=== PATIENT | male | born 1995 | race Caucasian/White ===

== ENCOUNTER 2018-12-12 11:15 | Emergency (ER) | payer OTHER, SELFPAY ==
[2018-12-12 11:18] VITALS: BP 152/91; PULSE 91; RESP 20; TEMP 37.1; O2SAT 98
--- NOTE | 2018-12-12 11:24 | ED.GENADUL_ITS ---
Discharge Plan Disposition Patient Disposition: HOME Condition: Stable Discharge Details Chief Complaint: AnimalBite Clinical Impression: Dog bite Primary Care Provider: Timo Barnett ED Provider: Ester Boston Home Meds and New Rx's Prescriptions: New doxycycline hyclate 100 mg tablet 100 mg PO BID 7 Days Qty: 14 RF: 0 Discharge Instructions Instructions: Animal Bite (ED) Additional Instructions: Keep wound clean, dry and covered. Take antibiotics until finished. Alternate Tylenol and Motrin as needed and directed for pain. Follow-up with your Worker's Compensation physician or occupational medicine in 1 week for wound evaluation. Return to the emergency department if you develop any worsening or new concerning symptoms such as fever, chills, worsening redness, pain or swelling. Follow-up with the department of health/animal control regarding the dog's immunization status and any other recommendations. Stand Alone Forms: Work Release Discharge Data Discharge Physician: Ester Boston Medical Decision Making 23-year-old male who presents with dog bite to the left upper thigh sustained prior to arrival. Unknown status of dog's immunizations. Patient is unsure of his own tetanus status. There is a superficial laceration and skin avulsion noted to the left upper thigh that seems limited to the epidermis. No open gaping wounds. No active bleeding. No obvious signs of fracture or foreign body. Neurovascular intact. Patient states it was a small to medium size dog. Will obtain a left femur x- ray to rule out foreign body. Will give a Boostrix, irrigate wound and cover with antibiotic ointment. Patient states he is allergic to penicillin. Pt declined medicine for pain here. Tetanus given. 1245 -- xray negative. Will discharge home with script for doxycycline. Pt instructed on the importance of good wound care. Instructed to rest, ice, elevate L leg. Instructed to alternate tylenol and motrin for pain. Instructed to return here if any signs of infection, fever, or chills. Medical Records Medical records reviewed: Yes I reviewed the patient's medical records. Imaging Data Radiologic Study: Radiologist's impression: LEFT FEMUR: No bone, joint or soft tissue abnormality is identified. The findings were discussed with the ER on the date of the examination. HPI General Mode of arrival: ambulatory . Date/Time Provider Initiated Documentation: 12/12/18 11:16 . Limitations to Documentation: no limitations . Information obtained by: patient . 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 Patient states he was walking up to his house when the owners let out the dog which ran him and bit him. He states he is unsure of the dog's immunization status. Patient states he is unsure of his own tetanus status. Patient denies any other injuries. Related Data Home Medications Medication Instructions Recorded Confirmed doxycycline hyclate 100 mg PO BID 7 Days #14 tab 12/12/18 Previous Rx's Medication Instructions Recorded doxycycline hyclate 100 mg PO BID 7 Days #14 tab 12/12/18 Allergies Allergy/AdvReac Type Severity Reaction Status Date / Time Penicillins Allergy Unverified 12/12/18 11:21 cigarette smoke AdvReac Unverified 12/12/18 11:21 General Stated Complaint: AnimalBite BC: 3 Review of Systems Review of Systems All systems reviewed & are unremarkable except as noted in HPI and below PFSH Medical History No significant past medical history (Acute) Surgical History History of knee surgery (Acute) History of appendectomy (Chronic) Social History Smoking/Tobacco Use Status: Never Alcohol Intake: current Alcohol Intake frequency: holidays/special occasions only Substance use type: does not use Do you feel safe at home: Yes Do you feel safe in your relationship?: Yes Exam Const General: cooperative, healthy appearing and no acute distress HENMS Head: normal to inspection Mouth: oral mucosae normal Eyes General: appearance normal, both eyes and all related structures Neck Neck: normal visual inspection Resp Effort & Inspection: normal respiratory effort and able to speak in complete sentences Cardio Rate: regular rate Skin General skin exam: no rashes or lesions noted Neuro General: alert, awake and oriented x3 Motor: muscle tone normal throughout Extrem Upper/lower leg/hip images: 1. There is an irregularly shaped jagged superficial laceration with superficial skin avulsion noted on distal medial aspect. No active bleeding. No erythema, edema, ecchymoses. Other: Normal range of motion noted at left hip. Psych Appearance: grossly normal Affect: normal affect Course Vital Signs Temperature 98.8 F 12/12/18 11:18 Pulse 91 H 12/12/18 11:18 Respiratory Rate 20 12/12/18 11:18 Blood Pressure 152/91 H 12/12/18 11:18 Pulse Oximetry 98 12/12/18 11:18 Temperature 98.8 F 12/12/18 11:18 Temperature Source Temporal Artery Scan 12/12/18 11:18 Pulse 91 H 12/12/18 11:18 Respiratory Rate 20 12/12/18 11:18 Respiratory Effort Non-Labored 12/12/18 11:18 Blood Pressure 152/91 H 12/12/18 11:18 Pulse Oximetry 98 12/12/18 11:18 Oxygen Delivery Method Room Air 12/12/18 11:18 Oxygen Flow Rate 0 12/12/18 11:18 Pain Level 8 12/12/18 11:18
--- NOTE | 2018-12-12 11:35 | DI.RAD_ITS ---
SYMPTOM/DIAGNOSIS: S/P DOG BITE. ? FX OR FOREIGN BODY LEFT FEMUR: No bone, joint or soft tissue abnormality is identified. The findings were discussed with the ER on the date of the examination.
== END 2018-12-12 13:03 | disposition home or self-care (01) ==
PROVIDERS: Emergency Provider Physician Assistant; PCP Family Medicine Adult Medicine
DX: S71.152A Open bite, left thigh, initial encounter (principal); W54.0XXA Bitten by dog, initial encounter
CPT/HCPCS: 73552; 90471; 99283